=== PATIENT | male | born 1995 | race Caucasian/White ===

== ENCOUNTER 2017-06-11 16:38 | Emergency (ER) | payer OTHER ==
[~2017-06-11] VITALS: Ht 167.6 cm; Wt 83.9 kg
[2017-06-11 17:24] LABS: HEMATOCRIT 46.5 % (42.0-52.0); HEMOGLOBIN 15.7 gm/dL (14.0-18.0); MCH 27.9 pg (26.0-34.0); MCHC 33.8 g/dL (28.0-37.0); MCV 82.5 fL (80.0-100.0); PLATELET COUNT 263 thou/uL (150-400); RBC 5.64 mil/uL (4.50-6.00); RDW 14.4 % (10.5-14.5); WBC 16.8 thou/uL (4.0-11.0)
[2017-06-11 17:39] LABS: CALCIUM 9.5 mg/dL (8.5-10.1); POTASSIUM 3.4 mmol/L (3.5-5.1)
[2017-06-11 17:56] LABS: ABSOLUTE NEUTROPHILS 13.3 thou/uL (1.4-8.2); ANISOCYTOSIS SLIGHT
[2017-06-11] MEDS ORDERED: ZOFRAN ODT8 MG PO (18:24)
[2017-06-11] MEDS ORDERED: TRAMADOL 50 MG50 MG PO (18:24)
[2017-06-11 19:49] LABS: URINE BILIRUBIN NEGATIVE (Negative); URINE BLOOD NEGATIVE (Negative); URINE CLARITY CLEAR; URINE COLOR YELLOW; URINE GLUCOSE-RANDOM* NEGATIVE (Negative); URINE KETONES 2+ (Negative); URINE LEUKOCYTES-REFLEX NEGATIVE (Negative); URINE NITRITE-REFLEX NEGATIVE (Negative); URINE PROTEIN (DIPSTICK) TRACE (Negative); URINE SPECIFIC GRAVITY <= 1.005 (1.005-1.035); URINE UROBILINOGEN 0.2 E.U./dl (0.2-1.0)
== END 2017-06-11 18:55 | disposition home or self-care (01) ==
LOC: ER 16:38
PROVIDERS: Emergency Medicine
DX: J11.1 Influenza due to unidentified influenza virus with other respiratory manifestations (principal); R11.2 Nausea with vomiting, unspecified; R10.11 Right upper quadrant pain; R19.7 Diarrhea, unspecified